=== PATIENT | male | born 1975 | race Caucasian/White ===

== ENCOUNTER → 2018-05-13 | Outpatient (CLI) | payer BC ==
--- NOTE | 2018-05-13 10:33 | US ---
EXAMINATION TYPE: US liver DATE OF EXAM: 05/13/2018 COMPARISON: NONE CLINICAL HISTORY: Abn liver function studies R94.5. Abnormal LFT's, pt has no other complaints at thi s time EXAM MEASUREMENTS: Liver Length: 14.9 cm Gallbladder Wall: 0.2 cm CBD: 0.4 cm Right Kidney: 10.5 x 4.7 x 5.3 cm Pancreas: obscured by overlying bowel gas Liver: Slightly heterogeneous with possible fatty sparing near GB Gallbladder: Multiple, probable polyps Evidence for sonographic Owens's sign: No CBD: wnl Right Kidney: wnl IMPRESSION: 1. Heterogeneous pattern of liver can be associated with fatty infiltration or hepatitis correlate cl inically. Suspected area of focal fatty sparing adjacent the gallbladder fossa. 2. Multiple probable gallbladder polyps. Less likely would be nonshadowing adherent gallstones.
== END ==
LOC: RADUSWWP 10:06
PROVIDERS: ATTEND Family Medicine
DX: R93.2 Abnormal findings on diagnostic imaging of liver and biliary tract (principal)
CPT/HCPCS: 76705

== ENCOUNTER → 2020-06-28 | Outpatient (CLI) | payer BC ==
--- NOTE | 2020-06-28 14:26 | CONS ---
CONSULTATION DATE OF SERVICE: 06/28/2020 This 45-year-old gentleman has been re-evaluated in Sleep Center for obstructive sleep apnea-hypopnea syndrome. HISTORY OF PRESENT ILLNESS/SLEEP-WAKE EVALUATION: Patient has history of obstructive sleep apnea for about 7 years. He is on treatment with CPAP every night for the whole night. His sleep schedule from 8 p.m. to 5 a.m. 7 days a week. No problem with falling asleep. No TV in bedroom. He usually sleeps on the back position. He does have restless leg symptoms while falling asleep, taking ropinirole. During the night, he may wake up 2-3 times with one episode of nocturia. No history of hypnagogic hallucinations, sleep paralysis or cataplexy. The patient is watching his information about his machine and tell that sometimes his apnea-hypopnea index significantly increasing to 20. I checked his CPAP unit. Pressure is 8 cm of water. Usage is 30 out of 30 nights for more than 4 hours. Leak is 6 L/minute, which is normal. Apnea-hypopnea index for the last night, 12.6. For the month, average 6.9; for the year, average 8.0. PAST MEDICAL HISTORY: Positive for anxiety. PAST SURGICAL HISTORY: LASIK surgery. MEDICATIONS: Venlafaxine 37.5 mg once a day, ropinirole 0.25 mg once a bed at bedtime. FAMILY HISTORY: Hyperlipidemia. SOCIAL HISTORY: Negative for smoking or overusing alcohol. REVIEW OF SYSTEMS: Awakenings from sleep on CPAP. PHYSICAL EXAMINATION: GENERAL: gentleman without distress. VITAL SIGNS: BP 118/69, HR 67, RR 12, height 5 feet and 7 inches, weight 186.8 pounds, BMI 29.1, temperature 98.3, oxygen saturation at room air 98%. HEENT: PERRLA, EOMI. Oropharynx low position of soft palate. Mallampati 3-4. NECK: Supple, no JVD. Thyroid is not palpable. LUNGS: Clear to percussion and to auscultation. Good air exchange. No wheezing or rhonchi. HEART: S1, S2 regular. No murmurs, gallops, or rubs. ABDOMEN: Soft and nontender. Bowel sounds are present. No organomegaly appreciated. EXTREMITIES: No clubbing or cyanosis. FINDING FASTENER: Awake, alert, and oriented X3. Cranial nerves 2 to 7 intact. There is no fasciculation or atrophy. noted. No focal deficits observed. IMPRESSION: 1. Obstructive sleep apnea-hypopnea syndrome. The patient demonstrated great compliance with treatment, benefitting from treatment, but still has some awakenings from sleep on CPAP and apnea-hypopnea index increased from the reading of the machine. 2. Overweight, body mass index 29.1. 3. History of restless legs syndrome. 4. History of periodic limb movements on treatment with ropinirole. 5. History of anxiety. 6. Status post LASIK surgery. PLAN: 1. I changed regimen of his machine to automatic range of the pressure 5-12. 2. Patient should continue to use CPAP equipment every night for the whole night. 3. Prescription for all necessary CPAP supplies was written. 4. Precautions related to driving. No driving if feeling any sleepiness. 5. Sleep hygiene with regular time in bed for at least 7-1/2 to 8 hours. Thank you very much for allowing me to participate in management of your patient. Sincerely, Brian Argueta MD, PhD, FAASM Diplomat of [place] [employer] [place] [employer] Pantograph Watcher of [facility] [place] MMODL / IJN: [id number] /
== END ==
LOC: SLEEP 12:05
PROVIDERS: ATTEND Internal Medicine
DX: G47.33 Obstructive sleep apnea (adult) (pediatric) (principal); F41.9 Anxiety disorder, unspecified; E66.3 Overweight; G25.81 Restless legs syndrome; G47.61 Periodic limb movement disorder; Z98.890 Other specified postprocedural states; Z68.29 Body mass index [BMI] 29.0-29.9, adult
CPT/HCPCS: 99211

== ENCOUNTER → 2020-10-26 | Outpatient (CLI) | payer BC ==
--- NOTE | 2020-10-27 10:01 | SFUN ---
SLEEP CENTER FOLLOW UP NOTE DATE OF SERVICE: 10/26/2020 This 45-year-old gentleman has been followed in Sleep Center for treatment of obstructive sleep apnea-hypopnea syndrome. The patient is using his CPAP equipment every night for the whole night. During the previous visit, I changed the regimen of his machine from constant CPAP pressure to automatic regimen because his apnea-hypopnea index previously was significantly increased. At present, he sleeps well with the machine. No snoring. He is getting his supplies. I checked his CPAP unit. Range of the pressure is 5-12; average pressure 8 cm of water. Usage is 30/30 nights for more than 4 hours with average usage 8.5 hours per night. Leak is 6 L/minute. Apnea-hypopnea index is 4.6, which is in normal range. MEDICATIONS: 1. Ropinirole 0.25 mg once at bedtime. 2. Venlafaxine 37.5 mg once in the morning. PHYSICAL EXAMINATION: GENERAL: A pleasant patient without any distress. VITAL SIGNS: BP 116/79, HR 72, RR 15, height 5 feet 6 inches, weight 179, BMI 28.8, temperature 98.1, oxygen saturation at room air 97%. HEENT: PERRLA, EOMI, evaluation of oropharynx showed tongue protrudes midline. Low position of soft palate. Mallampati 3-4. NECK: Supple, no JVD. Thyroid is not palpable. LUNGS: Clear to percussion and to auscultation. Good air exchange. No wheezing or rhonchi. HEART: S1, S2 regular. No murmurs, gallops, or rubs. ABDOMEN: Soft and nontender. Bowel sounds are present. No organomegaly appreciated. EXTREMITIES: No clubbing or cyanosis. STAFF REGISTERED NURSE: Awake, alert, and oriented X3. Cranial nerves 2 to 7 intact. There is no fasciculation or atrophy. noted. No focal deficits observed. IMPRESSION: 1. Obstructive sleep apnea-hypopnea syndrome. Patient demonstrated 100% compliance with treatment, benefitting from treatment. 2. History of restless leg syndrome. 3. History of periodic limb movements, on treatment with ropinirole. 4. History of anxiety. 5. Overweight; body mass index 28.8. 6. Status post LASIK surgery. PLAN: 1. Patient will continue to use PAP equipment every night for the whole night. 2. Sleep hygiene with regular time in bed for at least 7-1/2 to 8 hours. 3. Precautions related to driving. No driving if feeling sleepiness. 4. I will maintain all necessary prescription for PAP supplies including mask, tube, filters. 5. Watching weight. 6. Follow-up visit in 6 months or earlier if patient has any problems. Thank you very much for allowing me to participate in the management of your patient. Sincerely, Brian Argueta MD, PhD, FAASM Diplomat of [place] [employer] Specialties Sleep Medicine Board of [place] Board of Internal Medicine Bookkeeper Assistant of [facility] [place] I spent 30 minutes with the patient and documentation. MMODL / IJN: [id number] /
== END | disposition home or self-care (01) ==
LOC: SLEEP 13:16
PROVIDERS: ATTEND Internal Medicine
DX: Z53.9 Procedure and treatment not carried out, unspecified reason (principal)

== ENCOUNTER → 2021-04-25 | Outpatient (CLI) | payer BC ==
--- NOTE | 2021-04-25 20:54 | SFUN ---
SLEEP CENTER FOLLOW UP NOTE DATE OF SERVICE: 04/25/2021 This 46-year-old gentleman has been followed in Sleep Center for treatment of obstructive sleep apnea-hypopnea syndrome. The patient continues to use his CPAP equipment every night for the whole night and is getting his supplies on time, changing his air filter. No snoring on CPAP. [place] Sleepiness Scale today is 6, which is in normal range. I checked his CPAP unit. Range of the pressure is 5 to 12, average pressure 7.9 cm of water. Usage is 29/30 nights for more than 4 hours, average 9.1 hours per night, which is good compliance. Leak is 6 L/minute, which is normal. Apnea-hypopnea index is 2.1, which is great. MEDICATIONS: 1. Venlafaxine 37.5 mg once a day in the morning. 2. Ropinirole 0.25 mg one tablet at night. PHYSICAL EXAMINATION: GENERAL: Pleasant patient in no distress. VITAL SIGNS: BP 128/88, HR about 100, RR 16, height 5 feet and 6 inches, weight 186.8 pounds, temperature 97.6, oxygen saturation at room air 96%. HEENT: PERRLA, EOMI, evaluation of oropharynx showed tongue protrudes midline. Low position of soft palate; Mallampati III to IV. NECK: Supple, no JVD. Thyroid is not palpable. LUNGS: Clear to percussion and to auscultation. Good air exchange. No wheezing or rhonchi. HEART: S1, S2 regular. No murmurs, gallops, or rubs. ABDOMEN: Soft and nontender. Bowel sounds are present. No organomegaly appreciated. EXTREMITIES: No clubbing or cyanosis. STORE OPERATIONS ASSOCIATE: Awake, alert, and oriented X3. Cranial nerves 2 to 7 intact. There is no fasciculation or atrophy. noted. No focal deficits observed. IMPRESSION: 1. Obstructive sleep apnea-hypopnea syndrome. Patient demonstrated great compliance with treatment. Normal respiration on CPAP. 2. History of restless leg syndrome. The patient is on treatment with ropinirole. 3. History of periodic limb movements. 4. History of anxiety. 5. Status post LASIK surgery. 6. The patient's weight increased from 179 pounds during previous visit to 186.8 pounds today. PLAN: 1. Patient will continue to use PAP equipment every night for the whole night. 2. Sleep hygiene with regular time in bed for at least 7-1/2 to 8 hours. 3. Precautions related to driving. No driving if feeling sleepiness. 4. I will maintain all necessary prescription for PAP supplies including mask, tube, filters. 5. Watching weight. 6. Follow-up visit in 6 months or earlier if patient has any problems. Thank you very much for allowing me to participate in the management of your patient. Sincerely, Brian Argueta MD, PhD, FAASM Diplomat of [place] [employer] Specialties Sleep Medicine Board of [place] Board of Internal Medicine Physician Relations Representative of [facility] [place] MMODL / JOSHUAN: [id number] /
== END ==
LOC: SLEEP 16:27
PROVIDERS: ATTEND Internal Medicine
DX: G47.33 Obstructive sleep apnea (adult) (pediatric) (principal); Z98.890 Other specified postprocedural states

== ENCOUNTER → 2022-12-05 | Outpatient (CLI) | payer BC ==
--- NOTE | 2022-12-05 12:21 | P.PN ---
Subjective DATE: 12/05/2022 FOLLOW UP VISIT. Patient with obstructive sleep apnea hypopnea syndrome return to sleep center for follow-up visit. Information from previous visit have been reviewed. Patient is using PAP equipment every night for the whole night, getting PAP supplies in time. The patient does not have significant problems with the mask, PAP unit and humidification. [place] sleepiness scale is 4. I checked information from PAP unit. PAP unit pressure 5-12, average 7.6 cm H2O. Usage is 100 % for more then 4 hours, average 6.6 hours per night. Leak is 6 l/m, which is in acceptable range. Apnea Hypopnea Index is 4.2 for last 6 months, which is normal. MEDICATIONS:1. Ropinirole 0.25 mg at bedtime 2. Venlafaxine 75 mg once a day During physical exam: GENERAL: A pleasant patient without any distress. VITAL SIGNS: BP 137/80, HR 92, RR 16 , weight 181.6, temperature 98.0, oxygen saturation at room air 97% % . HEENT: PERRLA, EOMI.low position of soft palate, Mallapati 4 . NECK: Supple. No JVD. LUNGS: Clear to percussion and to auscultation. Good air exchange. No wheezing or rhonchi. HEART: S1, S2 regular. ABDOMEN: Soft and nontender.[] EXTREMITIES: No clubbing or cyanosis. FLOORING MECHANIC: Awake, alert, and oriented x3. No focal deficit. Impressions: 1. Obstructive sleep apnea-hypopnea syndrome. Patient demonstrated great compliance with treatment, benefiting from treatment. 2. Mild obesity. 3. Restless leg syndrome. 4. History of anxiety. 5. Status post Lasix eye surgery. Plan: 1. Continue using PAP equipment every night for the whole night. 2. To change air filter at least 1-2 times per month. 3. PAP unit should stay lower then position of the head. 4. Advised patient to remove all remaining water from humidifier canister daily and make it dry after each usage. Refill canister with fresh distilled water before each usage. 5. Sleep hygiene with regular time in bed for at least 8 hours. 6. Precautions related to driving. No driving if feel any sleepiness. 7. I will maintain prescription for PAP supplies including mask, tube, filters. 8. Follow up visit in 6 months or earlier if patient has any problems. 9. Watching weight. Thank you very much for allowing me to participate in the management of your patient. Brian Argueta MD, PhD, FAASM. Diplomat of [place] Board of Sleep Medicine, Sleep Medicine Board by [place] [employer] Medicine Email Marketing Executive of [facility] [place]
== END ==
LOC: 3 N SLEEP 10:26
PROVIDERS: ATTEND Internal Medicine
DX: G47.33 Obstructive sleep apnea (adult) (pediatric) (principal); E66.9 Obesity, unspecified; G25.81 Restless legs syndrome; F41.9 Anxiety disorder, unspecified; Z79.899 Other long term (current) drug therapy; Z98.890 Other specified postprocedural states; Z98.49 Cataract extraction status, unspecified eye; Z99.89 Dependence on other enabling machines and devices
CPT/HCPCS: 99212

== ENCOUNTER → 2023-06-26 | Outpatient (CLI) | payer BC ==
[2023-06-26 10:52] VITALS: BP 128/85; PULSE 70; RESP 16; TEMP 97.9
--- NOTE | 2023-06-26 11:21 | P.PN ---
Subjective DATE: 06/26/2023 FOLLOW UP VISIT. Patient with obstructive sleep apnea hypopnea syndrome return to sleep center for follow-up visit. Information from previous visit have been reviewed. Patient is using PAP equipment every night for the whole night, getting PAP supplies in time. The patient does not have significant problems with the mask, PAP unit and humidification. [place] sleepiness scale is 9. I checked information from PAP unit. PAP unit pressure 5-12, average 7.8 cm H2O, which is the same as during previous visit. Usage is 100% for more then 4 hours, average 7.3 hours per night. Leak is 5 l/m, which is in acceptable range. Apnea Hypopnea Index is significantly increased to 17.4, which include central apnea hypopnea index 16.3. MEDICATIONS:1. Venlafaxine 37.5 mg once a day 2. Ropinirole 0.25 mg once a day During physical exam: GENERAL: A pleasant patient without any distress. VITAL SIGNS: Please see below, weight 192 pounds, which is 11 pounds more than during previous visit. HEENT: PERRLA, EOMI.low position of soft palate, Mallapati 4 . NECK: Supple. No JVD. LUNGS: Clear to percussion and to auscultation. Good air exchange. No wheezing or rhonchi. HEART: S1, S2 regular. ABDOMEN: Soft and nontender.[] EXTREMITIES: No clubbing or cyanosis. GASOLINE LOCOMOTIVE CRANE OPERATOR: Awake, alert, and oriented x3. No focal deficit. Impressions: 1. Obstructive sleep apnea-hypopnea syndrome. Patient demonstrated great compliance with treatment, benefiting from treatment. 2. Apnea hypopnea index significantly increased mostly with developing of some central apneas according to reading from the machine. 3. Mild obesity, patient increased weight on 11 pounds comparing with previous visit. 4. Restless leg syndrome. 5. History of anxiety. 6. Status post LASEK eye surgery. I increased the range of the pressure in the machine from 5 to 15 cm of water, because patient increased his weight and apnea-hypopnea index increased, although apnea-hypopnea index increased mostly because of increasing central apnea hypopnea index. Plan: 1. Continue using PAP equipment every night for the whole night. 2. Home sleep apnea test for reevaluation of patient breathing during the sleep to check for obstructive and mostly central events which was documented by reading from the CPAP unit. 3. PAP unit should stay lower then position of the head. 4. Advised patient to remove all remaining water from humidifier canister daily and make it dry after each usage. Refill canister with fresh distilled water before each usage. 5. Sleep hygiene with regular time in bed for at least 8 hours. 6. Precautions related to driving. No driving if feel any sleepiness. 7. I will maintain prescription for PAP supplies including mask, tube, filters. 8. Follow up visit in 1-2 months or earlier if patient has any problems. 9. Watching weight. 10. We may consider to repeat CPAP titration, if necessary to use BiPAP ST mode. Thank you very much for allowing me to participate in the management of your patient. Brian Argueta MD, PhD, FAASM. Diplomat of [place] Board of Sleep Medicine, Sleep Medicine Board by [place] Board of Internal Medicine Supervisor Costuming of [facility] [place] Objective - Vital Signs Vital signs: Vital Signs Temp 97.9 F 06/26/23 10:44 Pulse 70 06/26/23 10:44 Resp 16 06/26/23 10:44 BP 128/85 06/26/23 10:44 Pulse Ox 97 06/26/23 10:44 FiO2 Intake & Output 06/25/23 06/26/23 06/26/23 18:59 06:59 18:59 Weight 87.09 kg
== END ==
LOC: 3 N SLEEP 10:34
PROVIDERS: ATTEND Internal Medicine
DX: G47.33 Obstructive sleep apnea (adult) (pediatric) (principal); G47.31 Primary central sleep apnea; E66.9 Obesity, unspecified; G25.81 Restless legs syndrome; Z99.89 Dependence on other enabling machines and devices; Z98.890 Other specified postprocedural states; Z86.59 Personal history of other mental and behavioral disorders; Z68.31 Body mass index [BMI] 31.0-31.9, adult
CPT/HCPCS: 99212

== ENCOUNTER → 2023-07-09 | Outpatient (CLI) | payer BC ==
--- NOTE | 2023-07-10 11:08 | P.PCN ---
Description of Procedure: CLINICAL: A home sleep apnea test has been done for confirmation of possible obstructive sleep apnea-hypopnea syndrome. DESCRIPTION OF PROCEDURE: RESULTS: Recording time was 7 hours 20 minutes. Evaluation time was 7 hours 00 minutes. Evaluation time is sufficient for making conclusion about results of the test. Raw data of sleep recording has been reviewed and is adequate. Respiratory channel showed 53 apneas and 99 hypopneas. Apnea-hypopnea index was 21.7 per hour, which included obstructive apnea index 1.6, central apnea index 5.7, mixed apnea index 0.3, possible [place]-Kinsey respiration for 1.5-hour. Pulse rate in the range between minimum 47, maximum 103, average 58 by computer calculation. Lowest desaturation was 80%. IMPRESSION: 1. Central and obstructive Sleep Apnea Hypopnea Syndrome in a moderate range. 2. Salvador-Kinsey respiration have been documented. Please see other impressions from consultation. PLAN: 1. CPAP, if necessary BiPAP ST mode and ASV titration for correction Salvador- Kinsey respiration and Central and obstructive respiratory abnormalities during sleep . 2. Sleep hygiene with regular time in bed for at least 8 hours. 3. Watching weight. 4. No driving if feeling any sleepiness. Thank you very much for allowing me to participate in the management of your patient. Sincerely, Brian Argueta MD, PhD, FAASM Diplomat of [place] [employer] Specialties Sleep Medicine Board of [place] Board of Internal Medicine Bus Boy of [facility] [place]
== END | disposition home or self-care (01) ==
LOC: 3 N SLEEP 17:00
PROVIDERS: ATTEND Internal Medicine
DX: G47.33 Obstructive sleep apnea (adult) (pediatric) (principal); G47.10 Hypersomnia, unspecified; G47.31 Primary central sleep apnea

== ENCOUNTER 2023-08-25 19:23 | Outpatient (CLI) | payer BC ==
--- NOTE | 2023-08-27 14:58 | P.PCN ---
Description of Procedure: CLINICAL: Titration with positive air pressure has been done for correction of respiratory abnormalities during sleep. DESCRIPTION OF PROCEDURE: The standard montage for clinical polysomnography included the electroencephalogram, the electrocardiogram, the mentalis surface electromyography and Lead II cardiography. The respiratory battery consisted of measurements of nasal /buccal air flow, pressure transducer measurements from the nose, thoracic and /or abdominal effort and intercostal surface electromyography. Video monitoring has been done to check for any parasomnia events. Nocturnal oxyhemoglobin saturations were obtained by finger oximetry. Step-mosher titration with positive airway pressure was utilized to control respiratory events. Raw data of sleep recording has been reviewed and is adequate. RESULTS: Sleep efficiency was normal 93.8%. Latency to sleep onset was normal 11.5 minutes.]. Sleep architecture showed stage N1 was short 1.0%, Delta sleep was in high range 19.9%, REM sleep was increased to 31.9%. Heart rate was minimum 55 BPM, maximum 68 BPM, average 61 BPM. EMG showed 20.5 periodic limb movements per hour with 0 micriarousals per hour. PAP titration have been done with CPAP up to the pressure 9 cm H2O. Patient had problems with CPAP, switched to BPAP. BPAP titrated up to 17/13 cm H2O. The best results were at the pressure 15/11 cm H2O. Apnea hypopnea index reduced to 2.0. IMPRESSION: 1. Obstructive sleep apnea hypopnea syndrome on controle with BPAP treatment. 2. Significant periodic limb movements have been documented without related micro arousals. Please see other impressions from consultation. PLAN: 1. The patient will have treatment with positive air pressure equipment with the level of pressure AutoBPAP maximal inspiratory pressure 17, minimal expiratory pressure 5, pressure support 4 and losing cm H2O and should use it every night for the whole night. 2. Watching weight. 3. Sleep hygiene with regular time in bed for at least 8 hours. 4. No driving if feeling any sleepiness. 5. I will see the patient for follow up visit to explain the results of the test, recommendations, check compliance with treatment and make any necessary adjustment related to mask fitting, pressure and humidification. 6. Please check iron profile including ferritin level. Low level of iron may increase risk for periodic limb movements Thank you very much for allowing me to participate in the management of your patient. Sincerely, Brian Argueta MD, PhD, FAASM Diplomat of [place] [employer] Specialties Sleep Medicine Board of [place] Board of Internal Medicine Nutrition Helper of [facility] [place]
== END 2023-08-26 05:40 | disposition home or self-care (01) ==
LOC: 3 N SLEEP 19:23
PROVIDERS: ATTEND Internal Medicine
DX: G47.33 Obstructive sleep apnea (adult) (pediatric) (principal); G47.61 Periodic limb movement disorder; Z99.89 Dependence on other enabling machines and devices
CPT/HCPCS: 95811

== ENCOUNTER → 2023-12-11 | Outpatient (CLI) | payer BC ==
[2023-12-11 13:12] VITALS: BP 117/72; PULSE 94; RESP 16; TEMP 98.1
--- NOTE | 2023-12-11 14:40 | P.PROGSL ---
Subjective DATE: 12/11/2023 FOLLOW UP VISIT. Patient with obstructive sleep apnea hypopnea syndrome return to sleep center for follow-up visit. Recently patient had sleep study which documented central and obstructive sleep apnea hypopnea syndrome. I discussed results of sleep studies with patient in details. Patient was initiated on PAP therapy and mary ay is first visit after treatment was started. Patient was able to use PAP equipment every night for the whole night. Patient feels that at the beginning of the night pressure could be slightly more. The patient does not have significant problems with the mask, PAP pressure and humidification. [place] sleepiness scale is 8. I checked information from PAP unit. BPAP unit pressure maximal inspiratory pressure 17, minimal expiratory pressure 5, pressure support 4, average pressure 11.8/7.8 cm H2O. Usage is 100% for more then 4 hours, average 6.9 hours per night. Leak is 14 l/m, which is in acceptable range. Apnea Hypopnea Index is still significantly increased to 13.5 and that include central apnea hypopnea index 12.2. MEDICATIONS: Please see below During physical exam: GENERAL: A pleasant patient without any distress. VITAL SIGNS: Please see below, weight 179 pounds. HEENT: PERRLA, EOMI.low position of soft palate, Mallapati 4 . NECK: Supple. No JVD. LUNGS: Clear to percussion and to auscultation. Good air exchange. No wheezing or rhonchi. HEART: S1, S2 regular. ABDOMEN: Soft and nontender.[] EXTREMITIES: No clubbing or cyanosis. DISPENSER OPERATOR: Awake, alert, and oriented x3. No focal deficit. Impressions: 1. Central and obstructive sleep apnea-hypopnea syndrome. Patient demonstrated great compliance with treatment, apnea hypopnea index still increased to 13.9, which include 12.6 central apnea events. 2. Mild obesity. 3. History of anxiety. 4. History of restless leg syndrome. 5. Status post LASEK eye surgery. I changed BiPAP pressure to the level 15 over 11 cm of water constant pressure, REM sleep was changed to start from pressure 10/ 6 cm of water. Plan: 1. Continue using BPAP equipment every night for the whole night. 2. To change air filter at least 1-2 times per month. 3. PAP unit should stay lower then position of the head. 4. Advised patient to remove all remaining water from humidifier canister daily and make it dry after each usage. Refill canister with fresh distilled water before each usage. 5. Sleep hygiene with regular time in bed for at least 8 hours. 6. Precautions related to driving. No driving if feel any sleepiness. 7. I will maintain prescription for PAP supplies including mask, tube, filters. 8. Follow up visit in 6 months or earlier if patient has any problems. 9. Watching weight. Thank you very much for allowing me to participate in the management of your patient. Brian Argueta MD, PhD, FAASM. Diplomat of [place] Board of Sleep Medicine, Sleep Medicine Board by [place] [employer] of Internal Medicine Acoustic Intelligence Specialist of [facility] [place] cc; Alexia Fang MD Objective - Vital Signs Vital Signs: Vital Signs Temp 98.1 F 12/11/23 13:11 Pulse 94 12/11/23 13:11 Resp 16 12/11/23 13:11 BP 117/72 12/11/23 13:11 Pulse Ox 97 12/11/23 13:11 FiO2 Intake & Output 12/10/23 12/11/23 12/11/23 18:59 06:59 18:59 Weight 81.193 kg Home Medications: Home Medications Medication Instructions Recorded Confirmed Type Venlafaxine HCl ER [Effexor Xr] 37.5 mg PO DAILY 06/26/23 06/26/23 History rOPINIRole HCL [Requip] 25 mg PO HS PRN 06/26/23 06/26/23 History
== END ==
LOC: 3 N SLEEP 13:05
PROVIDERS: ATTEND Internal Medicine
CPT/HCPCS: 99212

== ENCOUNTER → 2024-01-08 | Outpatient (CLI) | payer BC ==
[2024-01-08 15:04] VITALS: BP 123/71; PULSE 88; RESP 16; TEMP 98.3
--- NOTE | 2024-01-08 17:48 | P.PROGSL ---
Subjective DATE: 01/08/2024 FOLLOW UP VISIT. Patient with obstructive sleep apnea hypopnea syndrome return to sleep center for follow-up visit. Information from previous visit have been reviewed. Patient is using PAP equipment every night for the whole night, getting PAP supplies in time. The patient does not have significant problems with the mask, PAP unit and humidification. [place] sleepiness scale is 6, which is normal. I checked information from PAP unit. BPAP unit pressure 15/11 cm H2O. Usage is 100% for more then 4 hours, average 7.6 hours per night. Leak is 14 l/m, which is in acceptable range. Apnea Hypopnea Index is 4.6, which is normal. Breathing normalized, after I changed pressure during previous visit, but patient developed occasional discomfort in the stomach area after using CPAP possibly related to the air. MEDICATIONS have been reviewed, please see below. During physical exam: GENERAL: A pleasant patient without any distress. VITAL SIGNS: Please see below, weight is 182 lbs. HEENT: PERRLA, EOMI.low position of soft palate, Mallapati 4 . NECK: Supple. No JVD. LUNGS: Clear to percussion and to auscultation. Good air exchange. No wheezing or rhonchi. HEART: S1, S2 regular. ABDOMEN: Soft and nontender.[] EXTREMITIES: No clubbing or cyanosis. DENTAL OFFICE MANAGER: Awake, alert, and oriented x3. No focal deficit. Impressions: 1. Obstructive sleep apnea-hypopnea syndrome. Patient demonstrated great compliance with treatment, benefiting from treatment. After increasing BiPAP pressure respiration normalized, but patient developed feeling of air in the stomach in the morning after using CPAP. 2. History of anxiety. 3. Overweight, BMI 29.3, patient increased weight on 3 pounds comparing with previous visit. 4. History of restless leg syndrome. 5. Status post LASEK eye surgery. I decreased level of pressure to 13/ 9 cm of water to prevent feeling gas in the stomach. Plan: 1. Continue using PAP equipment every night for the whole night. 2. Sleep hygiene with regular time in bed for at least 7.5-8 hours 3. PAP unit should stay lower then position of the head. 4. Advised patient to remove all remaining water from humidifier canister daily and make it dry after each usage. Refill canister with fresh distilled water before each usage. 5. Watching weight. 6. Precautions related to driving. No driving if feel any sleepiness. 7. I will maintain prescription for PAP supplies including mask, tube, filters. 8. Follow up visit in 6 months or earlier if patient has any problems. Thank you very much for allowing me to participate in the management of your patient. Brian Argueta MD, PhD, FAASM. Diplomat of [place] [employer], Sleep Medicine Board by [place] [employer] [facility] [place] cc:Alexia Fang MD Objective - Vital Signs Vital Signs: Vital Signs Temp 98.3 F 01/08/24 15:03 Pulse 88 01/08/24 15:03 Resp 16 01/08/24 15:03 BP 123/71 01/08/24 15:03 Pulse Ox 96 01/08/24 15:03 FiO2 Intake & Output 01/07/24 01/08/24 01/08/24 18:59 06:59 18:59 Weight 82.554 kg Home Medications: Home Medications Medication Instructions Recorded Confirmed Type Venlafaxine HCl ER [Effexor Xr] 37.5 mg PO DAILY 06/26/23 06/26/23 History rOPINIRole HCL [Requip] 25 mg PO HS PRN 06/26/23 01/08/24 History
== END ==
LOC: 3 N SLEEP 14:20
PROVIDERS: ATTEND Internal Medicine
CPT/HCPCS: 99212

== ENCOUNTER → 2024-02-09 | Outpatient (CLI) | payer BC ==
[2024-02-09 10:59] VITALS: BP 131/77; PULSE 75; RESP 16; TEMP 98.1
--- NOTE | 2024-02-09 11:47 | P.PROGSL ---
Subjective DATE: 02/09/2024 FOLLOW UP VISIT. Patient with obstructive sleep apnea hypopnea syndrome return to sleep center for follow-up visit. Information from previous visit have been reviewed. During previous visit I decreased BiPAP pressure down, because patient experienced feeling of air in the stomach. Presently no feeling of air in the stomach after using BiPAP. Patient sleeps well. Patient is using PAP equipment every night for the whole night, getting PAP supplies in time. The patient does not have significant problems with the mask, PAP unit and humidification. [place] sleepiness scale is 7, which is in normal range. I checked information from PAP unit. BPAP unit pressure 13/9 cm H2O. Usage is 100% for more then 4 hours, average 7.4 hours per night. Leak is 17 l/m, which is in acceptable range. Apnea Hypopnea Index is slightly increased to 7.8, which include central apnea hypopnea index 6.9. MEDICATIONS have been reviewed, please see below. During physical exam: GENERAL: A pleasant patient without any distress. VITAL SIGNS: Please see below, weight is 179.6 lbs. HEENT: PERRLA, EOMI.low position of soft palate, Mall[place]ati 4 . NECK: Supple. No JVD. LUNGS: Clear to percussion and to auscultation. Good air exchange. No wheezing or rhonchi. HEART: S1, S2 regular. ABDOMEN: Soft and nontender.[] EXTREMITIES: No clubbing or cyanosis. VENEER REPAIRER MACHINE: Awake, alert, and oriented x3. No focal deficit. Impressions: 1. Obstructive sleep apnea-hypopnea syndrome. Patient demonstrated great compliance with treatment, benefiting from treatment. No obstructive events, several central events from reading from BiPAP unit. Patient sleeps well, no any discomfort in the stomach related to feeling of any gas after pressure was decreased during previous visit. 2. History of anxiety. 3. History of restless leg syndrome. 4. History of LASEK eye surgery. Plan: 1. Continue using PAP equipment every night for the whole night. 2. Sleep hygiene with regular time in bed for at least 7.5-8 hours 3. PAP unit should stay lower then position of the head. 4. Advised patient to remove all remaining water from humidifier canister daily and make it dry after each usage. Refill canister with fresh distilled water before each usage. 5. Watching weight. 6. Precautions related to driving. No driving if feel any sleepiness. 7. I will maintain prescription for PAP supplies including mask, tube, filters. 8. Follow up visit in 8 months or earlier if patient has any problems. Thank you very much for allowing me to participate in the management of your patient. Brian Argueta MD, PhD, FAASM. Diplomat of [place] [employer], Sleep Medicine Board by [employer] [facility] [place] cc: Alexia Fang MD Objective - Vital Signs Vital Signs: Vital Signs Temp 98.1 F 02/09/24 10:58 Pulse 75 02/09/24 10:58 Resp 16 02/09/24 10:58 BP 131/77 02/09/24 10:58 Pulse Ox 98 02/09/24 10:58 FiO2 Intake & Output 02/08/24 02/09/24 02/09/24 18:59 06:59 18:59 Weight 81.193 kg Home Medications: Home Medications Medication Instructions Recorded Confirmed Type Venlafaxine HCl ER [Effexor Xr] 37.5 mg PO DAILY 06/26/23 06/26/23 History rOPINIRole HCL [Requip] 25 mg PO HS PRN 06/26/23 01/08/24 History
== END ==
LOC: 3 N SLEEP 10:14
PROVIDERS: ATTEND Internal Medicine
DX: G47.33 Obstructive sleep apnea (adult) (pediatric) (principal); F41.9 Anxiety disorder, unspecified; Z87.39 Personal history of other diseases of the musculoskeletal system and connective tissue; Z99.89 Dependence on other enabling machines and devices; Z98.890 Other specified postprocedural states
CPT/HCPCS: 99212